=== PATIENT | female | born 1955 | race Hispanic/Latino ===

== ENCOUNTER 2018-12-06 15:30 | Inpatient (IN) | payer OTHER ==
[2018-12-20] MEDS ORDERED: APRESOLINE IV PRN (06:01)
[2018-12-20] MEDS ORDERED: NORCO PO PRN (06:01)
[2018-12-20] MEDS ORDERED: ZOFRAN IV PRN (06:01)
[2018-12-20] MEDS ORDERED: MORPHINE IV PRN (06:01)
[2018-12-20] MEDS ORDERED: MYLICON PO PRN (06:01)
[2018-12-20] MEDS ORDERED: REGLAN IV PRN (06:01)
[2018-12-20] MEDS ORDERED: PROVENTIL IH NR (06:45)
[2018-12-20] MEDS ORDERED: TRANSDERM-SCOP TD SCH (07:00)
[2018-12-20] MEDS ORDERED: FLAGYL 500 MG/100 ML 500 MG/100 ML BAG IV NR ×2 (07:00→08:20)
[2018-12-20] MEDS ORDERED: LOVENOX SUB-Q NR (07:00)
[2018-12-20] MEDS ORDERED: ANCEF/STERILE WATER 2 GM/20 ML 2 GM/20 ML SYRINGE IV NR (07:00)
[2018-12-20] MEDS: LACTATED RINGERS 1,000 ML IV SCH ×2 (08:40→23:18)
[2018-12-20 08:58] LABS: Bilirubin,Urine NEG (Negative); Blood,Urine NEG (Negative); Color,Urine Amber (Yellow); RBC,Urine < 1.0 /HPF (0.0-6.0); Urobilinogen,Urine < 2.0 mg/dL (<2.0)
[2018-12-20] MEDS ORDERED: SUBLIMAZE IV PRN (09:17)
--- NOTE | 2018-12-20 09:19 | Anesthesia Consultation ---
Anesthesia Consult and Med Hx Date of service: 12/20/18 - Airway Anesthetic Teeth Evaluation: Good ROM Head & Neck: Adequate Mental/Hyoid Distance: Adequate Mallampati Class: Class III Intubation Access Assessment: Possibly Difficult - Pulmonary Exam CTA: Yes - Cardiac Exam Cardiac Exam: RRR - Pre-Operative Health Status ASA Pre-Surgery Classification: ASA3 Proposed Anesthetic Plan: General - Pulmonary Hx Smoking: Yes (SINCE AGE 20; QUIT 2007) COPD: Yes (nocompliant with maintenance inhaler; no recent exacerbations) Hx Sleep Apnea: Yes (compliant with CPAP) - Cardiovascular System Hx Hypertension: Yes (took amlodipine this morning) Hx Heart Attack/AMI: No Hx Percutaneous Transluminal Coronary Angioplasty (PTCA): No Hx Cardia Arrhythmia: No - Central Nervous System Hx Seizures: No CVA: No Hx Psychiatric Problems: Yes (anxiety/depression) - Gastrointestinal Hx Gastroesophageal Reflux Disease: No - Endocrine Hx Renal Disease: No Hx Liver Disease: Yes (nonalcoholic fatty liver; LFTs normal ) Hx Non-Insulin Dependent Diabetes: Yes Hx Hypothyroidism: Yes - Other Systems Hx Obesity: Yes - Additional Comments Anesthesia Medical History Comments: No hx anesthetic complications.
--- NOTE | 2018-12-20 09:20 | Anesthesia Day of Surgery ---
Anesthesia Day of Surgery - Day of Surgery Patient Examined: Yes Patient H&P Reviewed: Yes Patient is NPO: Yes Cardiac Clearance: Yes Pulmonary Clearance: Yes
[2018-12-20] MEDS ORDERED: DIPRIVAN 10 MG/ML IV ONE (09:55)
[2018-12-20] MEDS ORDERED: SUBLIMAZE ONE (09:55)
[2018-12-20] MEDS ORDERED: MARCAINE 0.5% INFILTRATI ONE (09:58)
[2018-12-20] MEDS ORDERED: XYLOCAINE 1% 20 mL ONE (09:58)
[2018-12-20] MEDS ORDERED: MARCAINE-EPI 0.5%-1:200,000 INFILTRATI ONE ×2 (09:59→10:39)
[2018-12-20] MEDS ORDERED: ZEMURON IV ONE (10:01)
[2018-12-20] MEDS ORDERED: DECADRON ONE (10:01)
[2018-12-20] MEDS ORDERED: BLOXIVERZ ONE (10:01)
[2018-12-20] MEDS ORDERED: ROBINUL ONE (10:01)
[2018-12-20] MEDS ORDERED: ZOFRAN ONE (10:01)
[2018-12-20] MEDS ORDERED: QUELICIN ONE (10:01)
[2018-12-20] MEDS ORDERED: XYLOCAINE 1% 20 mL INFILTRATI ONE (10:39)
[2018-12-20] MEDS ORDERED: XYLOCAINE MPF 2% ONE (11:23)
[2018-12-20] MEDS ORDERED: DILAUDID ONE (11:31)
--- NOTE | 2018-12-20 13:20 | Operative Report ---
SURGEON: Tayo Bucio MD CORRECTIONAL CLASSIFICATION COUNSELOR: Leanne Teran MD, Fareed Gentile MD PREOPERATIVE DIAGNOSIS: Morbid obesity. POSTOPERATIVE DIAGNOSES: 1. Morbid obesity. 2. Cirrhosis of the liver. OPERATION: 1. Laparoscopic sleeve gastrectomy. 2. Laparoscopic sleeve hiatal hernia repair. ANESTHESIA: General endotracheal anesthesia. SPECIMENS: Gastric remnant. COMPLICATIONS: None. BLEEDING: Minimal. INDICATIONS: The patient is a 63-year-old female with a history of morbid obesity. She has undergone preoperative bariatric workup and presents for her planned operation. The risks, complications and alternatives were explained to the patient and informed consent was obtained. DESCRIPTION OF PROCEDURE: The patient was brought to the operating suite where she was placed in the supine position and underwent general endotracheal intubation. She received preoperative antibiotics and DVT prophylaxis. A timeout was called to ensure proper patient, indication, operation, and that she was prepped and draped in the usual sterile fashion. Local analgesia was injected around the umbilical region and a small stab incision was made at the base of the umbilicus with insertion of a Veress needle. Insufflation pressures were achieved to 18 mmHg and then the incision was widened and a 15 mm trocar was inserted. Under intra-abdominal view, there was no injury. Additional 5 mm ports were placed in the right lateral subxiphoid and left lateral quadrants. A liver retractor was placed and then the patient was repositioned in steep reverse Trendelenburg. We did note cirrhosis of the liver involving the entire liver. There were adhesions in the right lower quadrant and pelvis. There were no other abnormalities noted. A hydrodissection was first performed revealing a small hiatal hernia. The angle of His was dissected free. The esophageal fat pad was removed. The greater curvature of the stomach was from the gastrocolic ligament using the LigaSure device. The short gastrics were removed. She had extensive adhesions from the pancreas to the posterior surface of her stomach. This was all taken down to fully mobilize the stomach. This was continued for 6 cm antegrade from the pylorus. After this, Anesthesia placed a 40-Austrian bougie and a sleeve gastrectomy was performed utilizing several staple loads. Insufflation pressures were decreased and the staple line was cauterized after each fire load. After this, an anterior cruroplasty was then done with 0 Surgidac suture in a U-stitch fashion. The remnant was removed from the umbilical port site and the fascia was closed with #1 PDS using a Gavin-Keesha. All the air was desufflated and the ports were all removed. Additional local was injected around the wound sites and then wounds were closed with 4-0 Monocryl. Sterile bandages were placed over top. The patient was then extubated and left the operating room in stable condition. Counts were correct. FINDINGS: 1. Cirrhosis of the liver. 2. Adhesions to the posterior surface of her stomach to the pancreas. JOB# [id number] [facility]
--- NOTE | 2018-12-20 13:56 | Post Anesthesia Evaluation ---
- Post Anesthesia Evaluation Patient Participated: Yes Airway Patent: Yes Stable Respiratory Function: Yes Nausea/Vomiting: No Temp > 96.8F: Yes Pain Manageable: Yes Adequeate Hydration: Yes Anesthesia Complications: No
[2018-12-20] MEDS: DILAUDID IV PRN (17:26)
[2018-12-20] MEDS: NEURONTIN PO SCH (18:12)
[2018-12-20] MEDS: NORVASC PO SCH (20:14)
[2018-12-21] MEDS: DILAUDID IV PRN (01:28)
[2018-12-21 05:04] LABS: Basophils % (Auto) 0.2 % (0.0-1.8); Eosinophils # (Auto) 0.1 K/mm3 (0.0-0.4); Eosinophils % (Auto) 1.2 % (0.0-4.3); Hematocrit 40.6 % (30.3-42.9); Hemoglobin 13.6 gm/dl (10.1-14.3); Lymphocytes # (Auto) 0.9 K/mm3 (1.2-5.4); Lymphocytes % (Auto) 10.2 % (13.4-35.0); Mean Corpuscular HGB Conc 34 % (30-34); Mean Corpuscular Volume 87 fl (79-97); Monocytes # (Auto) 0.8 K/mm3 (0.0-0.8); Monocytes % (Auto) 8.4 % (0.0-7.3); Platelet Count 187 K/mm3 (140-440); Red Cell Distribution Width 14.3 % (13.2-15.2)
[2018-12-21 05:25] LABS: BUN/Creatinine Ratio 23; Blood Urea Nitrogen 9 mg/dL (7-17); Hemolysis Index 23
[2018-12-21] MEDS: SYNTHROID PO SCH (06:47)
[2018-12-21] MEDS: LACTATED RINGERS 1,000 ML IV SCH (06:49)
--- NOTE | 2018-12-21 07:04 | Discharge Summary ---
Providers - Providers Date of Admission: 12/20/18 06:30 Date of discharge: 12/21/18 Attending physician: AZEB BUCIO Hospitalization Reason for admission: postop Condition: Good Procedures: 12/20/18: Laparoscopic sleeve gastrectomy Hospital course: 63F admitted after her operation for routine postop care. She was managed on the general surgical floor. SHe had no major issues, tolerated a CLD, ambulated, and was dc home POD1. Disposition: DC-01 TO HOME OR SELFCARE Core Measure Documentation - Palliative Care Palliative Care/ Comfort Measures: Not Applicable - Core Measures Any of the following diagnoses?: none - VTE Discharge Requirements Deep Vein Thrombosis/Pulmonary Embolism Present on Admission: No - Acute [place] Discharge Requirements Aspirin at discharge: No Reason for no aspirin on DC: Surgical contraindication - Heart Failure Discharge Requirements JANET/ARB for LVSD if EF <40%: Not Applicable - Stroke Discharge Requirements Statin for LDL = or >70 mg/dl on DC: Not Applicable Exam - Physical Exam Narrative exam: Gen: AAO, NAD Heart: RRR Lungs: CTAB Abd: MO, soft, ND, NT. Bandages c/d/i. - Constitutional Vitals: Temp Pulse Resp BP Pulse Ox 97.5 F L 77 22 98/43 97 12/21/18 06:05 12/21/18 06:05 12/21/18 06:05 12/21/18 06:05 12/21/18 06:05 Plan Diet: clear liquids Wound: keep clean and dry Special Instructions: no heavy lifting Additional Instructions: Andres Bucio as scheduled Follow up with: IRIS CRUM [Other] - 7 Days
[2018-12-21] MEDS: NORVASC PO SCH (09:00)
[2018-12-21] MEDS: EFFEXOR PO SCH (10:54)
[2018-12-21] MEDS: LOVENOX SUB-Q SCH (10:54)
[2018-12-21] MEDS: SPIRIVA IH SCH (11:48)
--- NOTE | 2018-12-21 14:15 | Progress Note ---
Subjective Date of service: 12/21/18 Interval history: Patient with desaturation off O2. Takes CPAP at night but not dependent on O2. Cancel DC order, will proceed with workup. Objective - Constitutional Vitals: Vital Signs - 12hr 12/21/18 12/21/18 12/21/18 05:42 06:05 07:12 Temperature 97.5 F L 98.0 F Pulse Rate 75 77 75 Respiratory 22 18 Rate Blood Pressure 101/48 Blood Pressure 98/43 [Left] O2 Sat by Pulse 96 97 93 Oximetry 12/21/18 13:41 Temperature 97.9 F Pulse Rate 72 Respiratory 18 Rate Blood Pressure 88/34 Blood Pressure [Left] O2 Sat by Pulse 91 Oximetry - Labs CBC & Chem 7: 12/21/18 04:49 12/21/18 04:49 Labs: Abnormal lab results 12/20/18 12/20/18 12/20/18 Range/Units 08:53 18:23 21:39 Lymph % (Auto) (13.4-35.0) % [place]arro % (Auto) (0.0-7.3) % Lymph # (1.2-5.4) K/mm3 Seg Neutrophils % (40.0-70.0) % Creatinine (0.7-1.2) mg/dL Glucose (65-100) mg/dL POC Glucose 127 H 146 H 131 H (70-105) 12/21/18 12/21/18 12/21/18 Range/Units 04:49 04:49 07:19 Lymph % (Auto) 10.2 L (13.4-35.0) % [place]arro % (Auto) 8.4 H (0.0-7.3) % Lymph # 0.9 L (1.2-5.4) K/mm3 Seg Neutrophils % 80.0 H (40.0-70.0) % Creatinine 0.4 L (0.7-1.2) mg/dL Glucose 107 H (65-100) mg/dL POC Glucose 142 H (70-105) 12/21/18 Range/Units 11:24 Lymph % (Auto) (13.4-35.0) % [place]arro % (Auto) (0.0-7.3) % Lymph # (1.2-5.4) K/mm3 Seg Neutrophils % (40.0-70.0) % Creatinine (0.7-1.2) mg/dL Glucose (65-100) mg/dL POC Glucose 124 H (70-105) Medications & Allergies - Medications Allergies/Adverse Reactions: Allergies chlorpheniramine Allergy (Verified 12/16/18 15:04) Hives HIVES ciprofloxacin [From Cipro] Allergy (Verified 12/16/18 15:04) Hives etodolac Allergy (Verified 12/16/18 15:04) Hives kiwi Allergy (Verified 12/16/18 15:04) Anaphylaxis lisinopril Allergy (Verified 12/16/18 15:04) Hives niacin Allergy (Verified 12/16/18 15:04) Hives pseudoephedrine Allergy (Verified 12/16/18 15:04) Hives simvastatin Allergy (Verified 12/16/18 15:04) Hives varenicline Allergy (Verified 12/16/18 15:04) Hives Home Medications: Home Medications Medication Instructions Recorded Confirmed Last Taken Type ALBUTEROL Inhaler (OR & NICU) 2 puff IH QID PRN 12/16/18 12/16/18 12/19/18 09:00 History [ProAir HFA Inhaler] AtorvaSTATin [Lipitor] 10 mg PO QHS 12/16/18 12/16/18 12/19/18 21:00 History Cetirizine HCl [ZyrTEC 10mg cap] 10 mg PO DAILY 12/16/18 12/16/18 12/19/18 09:00 History Empagliflozin [Jardiance] 10 mg PO DAILY 12/16/18 12/16/18 12/19/18 09:00 H istory Gabapentin [Gralise] 300 mg PO DAILY 12/16/18 12/16/18 12/19/18 09:00 History Levothyroxine [Synthroid] 150 mcg PO QAM 12/16/18 12/16/18 12/20/18 05:00 History Saxagliptin HCl/Metformin HCl 1 tab PO QPM 12/16/18 12/16/18 12/19/18 21:00 History [Kombiglyze XR 5-1,000 mg] Tiotropium [Spiriva] 18 mcg IH QDAY 12/16/18 12/16/18 12/19/18 09:00 History Venlafaxine [Effexor] 75 mg PO DAILY 12/16/18 12/16/18 12/19/18 09:00 History amLODIPine [Norvasc] 5 mg PO DAILY 12/16/18 12/16/18 12/20/18 05:00 History Active Medications: Generic Name Dose Route Start Last Admin Trade Name Freq PRN Reason Stop Dose Admin Acetaminophen/Hydrocodone Bitart 7.5 mg 12/20/18 06:01 12/21/18 06:47 Stanton PO 7.5 mg Q4H PRN Administration Pain, Moderate (4-6) Amlodipine Besylate 5 mg 12/20/18 10:00 12/21/18 09:00 Norvasc PO Not Given QDAY MELQUIADES Atorvastatin Calcium 10 mg 12/20/18 22:00 12/20/18 22:04 Lipitor PO Not Given QHS MELQUIADES Enoxaparin Sodium 40 mg 12/21/18 10:00 12/21/18 10:54 Lovenox SUB-Q 40 mg QDAY MELQUIADES Administration Gabapentin 300 mg 12/20/18 18:00 12/20/18 18:12 Neurontin PO Not Given QPM MELQUIADES Hydralazine HCl 10 mg 12/20/18 06:01 Apresoline IV Q6H PRN SBP > 150 Hydromorphone HCl 0.5 mg 12/20/18 06:01 12/21/18 01:28 Dilaudid IV 0.5 mg Q3H PRN Administration Pain , Severe (7-10) Lactated Ringer's 1,000 mls @ 150 mls/hr 12/20/18 07:00 12/21/18 06:49 Lactated Ringers IV 150 mls/hr DIRECT MELQUIADES Administration Sodium Chloride 1,000 mls @ 999 mls/hr 12/21/18 14:11 Nacl 0.9% 1000 Ml IV 12/21/18 15:11 BOLUS ONE Levothyroxine Sodium 150 mcg 12/21/18 06:00 12/21/18 06:47 Synthroid PO 150 mcg DAILY@0600 MELQUIADES Administration Morphine Sulfate 2 mg 12/20/18 06:01 12/20/18 23:10 Morphine IV 2 mg Q4H PRN Administration Pain, Moderate (4-6) Ondansetron HCl 4 mg 12/20/18 06:01 12/20/18 23:15 Zofran IV 4 mg Q8H PRN Administration Nausea And Vomiting Scopolamine 1 each 12/20/18 07:00 12/20/18 08:56 Transderm-Scop TD 1 each Q3D MELQUIADES Administration Simethicone 80 mg 12/20/18 06:01 12/21/18 06:46 Mylicon PO 80 mg Q6H PRN Administration Gas pain Tiotropium [place] 1 puff 12/21/18 09:00 12/21/18 11:48 Spiriva IH Not Given Q24HRT MELQUIADES Venlafaxine HCl 75 mg 12/21/18 10:00 12/21/18 10:54 Effexor PO 75 mg DAILY MEQLUIADES Administration
--- NOTE | 2018-12-21 14:32 | XRay Report ---
AP CHEST: HISTORY: Low oxygen AP view of the chest demonstrates a normal mediastinal and cardiac contour with clear lungs and normal bony and soft tissue structures. IMPRESSION: Unremarkable AP chest.
[2018-12-21] MEDS ORDERED: NACL 0.9% 1000 ML 1,000 ML IV ONE (15:11)
[2018-12-21 15:37] LABS: Hematocrit 39.4 % (30.3-42.9); Hemoglobin 13.3 gm/dl (10.1-14.3); Mean Corpuscular HGB Conc 34 % (30-34); Mean Corpuscular Volume 87 fl (79-97); Platelet Count 178 K/mm3 (140-440); Red Blood Count 4.51 M/mm3 (3.65-5.03); Red Cell Distribution Width 14.4 % (13.2-15.2)
[2018-12-21 16:52] LABS: BUN/Creatinine Ratio 20; Blood Urea Nitrogen 10 mg/dL (7-17); Calcium 8.7 mg/dL (8.4-10.2); Hemolysis Index 14
[2018-12-21] MEDS: NEURONTIN PO SCH (18:33)
[2018-12-22] MEDS: LACTATED RINGERS 1,000 ML IV SCH (04:46)
[2018-12-22] MEDS: SYNTHROID PO SCH (05:00)
[2018-12-22] MEDS: LOVENOX SUB-Q SCH (08:14)
[2018-12-22] MEDS: EFFEXOR PO SCH (08:15)
[2018-12-22] MEDS: SPIRIVA IH SCH (10:52)
[2018-12-22 11:59] VITALS: BP 114/57
== END 2018-12-22 17:00 | disposition home or self-care (01) | DRG 621 ==
LOC: EDBD → 3A 12-20 06:30 → 3B-SURG 12-20 12:10
PROVIDERS: ADMIT Specialist; ATTEND Specialist
PROC: 0DB64Z3 Excision of Stomach, Percutaneous Endoscopic Approach, Vertical (ICD-10-PCS; principal; 2018-12-20)
PROC: 0BQT4ZZ Repair Diaphragm, Percutaneous Endoscopic Approach (ICD-10-PCS; 2018-12-20)
PROC: 0DNW4ZZ Release Peritoneum, Percutaneous Endoscopic Approach (ICD-10-PCS; 2018-12-20)
PROC: 4A033R1 Measurement of Arterial Saturation, Peripheral, Percutaneous Approach (ICD-10-PCS; 2018-12-21)
DX: E66.01 Morbid (severe) obesity due to excess calories (principal); J44.9 Chronic obstructive pulmonary disease, unspecified; G47.30 Sleep apnea, unspecified; I10 Essential (primary) hypertension; F41.9 Anxiety disorder, unspecified; F32.9 Major depressive disorder, single episode, unspecified; E03.9 Hypothyroidism, unspecified; E11.9 Type 2 diabetes mellitus without complications; E78.5 Hyperlipidemia, unspecified; K74.60 Unspecified cirrhosis of liver; K66.0 Peritoneal adhesions (postprocedural) (postinfection); Z68.35 Body mass index [BMI] 35.0-35.9, adult; Z87.891 Personal history of nicotine dependence; Z79.899 Other long term (current) drug therapy; Z90.49 Acquired absence of other specified parts of digestive tract; Z90.710 Acquired absence of both cervix and uterus
CPT/HCPCS: 36415; 36600; 71045; 80048; 81001; 82330; 82803; 82962; 83735; 84100; 84484; 85025; 85027; 88307; 93005; 93010; 94760; G0378; A9270-GY; J0330; J0690; J1100; J1170; J1650; J2270; J2405; J2704; J2710; J3010; J7030; J7120

== ENCOUNTER 2018-12-13 06:56 | Day surgery (SDC) | payer OTHER ==
[2018-12-13] MEDS ORDERED: WATER FOR IRRIG STERILE IR ONE (08:00)
--- NOTE | 2018-12-13 08:08 | Anesthesia Day of Surgery ---
Anesthesia Day of Surgery - Day of Surgery Patient Examined: Yes Patient H&P Reviewed: Yes Patient is NPO: Yes Beta Blockers: No
--- NOTE | 2018-12-13 08:12 | Anesthesia Consultation ---
Anesthesia Consult and Med Hx Date of service: 12/13/18 - Airway Anesthetic Teeth Evaluation: Good ROM Head & Neck: Adequate Mental/Hyoid Distance: Adequate Mallampati Class: Class III Intubation Access Assessment: Good - Pulmonary Exam CTA: Yes - Cardiac Exam Cardiac Exam: No Murmur - Pre-Operative Health Status ASA Pre-Surgery Classification: ASA3 Proposed Anesthetic Plan: MAC - Pulmonary COPD: Yes - Cardiovascular System Hx Hypertension: Yes - Endocrine Hx Non-Insulin Dependent Diabetes: Yes Hx Hypothyroidism: Yes - Other Systems Hx Obesity: Yes
[2018-12-13] MEDS ORDERED: NACL 0.9% 1000 ML 1,000 ML IV SCH (09:00)
[2018-12-13] MEDS ORDERED: VERSED ONE (09:06)
[2018-12-13] MEDS ORDERED: DIPRIVAN 10 MG/ML IV ONE (09:06)
[2018-12-13 09:55] VITALS: BP 114/75
--- NOTE | 2018-12-13 10:00 | Operative Report ---
PREOPERATIVE DIAGNOSIS: Morbid obesity. POSTOPERATIVE DIAGNOSES: Small hiatal hernia, gastritis. PROCEDURE: Esophagogastroduodenoscopy. ANESTHESIA: MAC. COMPLICATIONS: None. BLEEDING: None. SPECIMENS: None. INDICATIONS: The patient is a 63-year-old female with a history of morbid obesity. She is here for a preoperative EGD in preparation for weight loss surgery. Informed consent was obtained. DESCRIPTION OF PROCEDURE: The patient was brought to the GI suite where she was placed in the left lateral decubitus position and underwent MAC anesthesia. A biteblock was placed and a timeout was called. A standard adult gastroscope was inserted into the oropharynx, down the esophagus, into the stomach, and the first portion of the duodenum. There was noted gastritis located mainly in the antrum. On the retroflexion view, she was noted to have a small hiatal hernia approximately 2 cm type 1 sliding. There were no other abnormalities. With this, the air was suctioned. The scope was removed. The patient tolerated the procedure with no immediate complications and was transferred to the PACU in stable condition. [facility]# [id number] [facility]
== END 2018-12-13 06:57 | disposition home or self-care (01) ==
LOC: GIO 06:56
PROVIDERS: ATTEND Specialist
DX: K29.70 Gastritis, unspecified, without bleeding (principal); K44.9 Diaphragmatic hernia without obstruction or gangrene; E66.01 Morbid (severe) obesity due to excess calories; E78.00 Pure hypercholesterolemia, unspecified; K30 Functional dyspepsia; I10 Essential (primary) hypertension; J44.9 Chronic obstructive pulmonary disease, unspecified; E11.9 Type 2 diabetes mellitus without complications; E03.9 Hypothyroidism, unspecified; Z68.35 Body mass index [BMI] 35.0-35.9, adult; Z79.899 Other long term (current) drug therapy; Z88.8 Allergy status to other drugs, medicaments and biological substances
CPT/HCPCS: 43235; 82962; J2250; J2704; J7030